=== PATIENT | female | born 1965 | race Caucasian/White ===

== ENCOUNTER → 2020-05-10 10:48 | Outpatient (BNVA) | payer OTHER, SELFPAY | PROVIDERS: Family Provider Internal Medicine; PCP Internal Medicine; Visit Provider Internal Medicine | DX: M47.816 Spondylosis without myelopathy or radiculopathy, lumbar region (principal) | CPT/HCPCS: 72100 ==

== ENCOUNTER → 2020-05-17 12:54 | Outpatient (BNVA) | payer OTHER, SELFPAY | PROVIDERS: Family Provider Internal Medicine; PCP Internal Medicine; Visit Provider Specialist | DX: M47.26 Other spondylosis with radiculopathy, lumbar region (principal); G62.9 Polyneuropathy, unspecified | CPT/HCPCS: 95909 ==

== ENCOUNTER 2020-05-19 16:42 | Outpatient (CLI) | payer OTHER, SELFPAY ==
--- NOTE | 2020-05-19 17:19 | MR_ITS ---
WS: [id number] EXAM: MR lumbar spine wo con* [id number] DATE OF EXAMINATION: 05/19/2020, 1731 hours COMPARISON: Lumbar spine plain films from 05/10/2020 HISTORY: 54 years old with low back pain with difficulty walking for years. TECHNIQUE: Sagittal T1, T2 and T2 inversion recovery: Axial proton density and T2 FINDINGS: Lower thoracic, lumbar vertebrae and upper sacral segments are of normal height and marrow signal ines racteristics. Cord ends distal L1 level. Distal cord is normal in appearance. T9-10, T10-11, T11-12 and T12-L1 disc levels show minimal degenerative changes without protrusion, ca nal or neural from stenosis L1-2: Normal L2-3: Normal L3-4: Slight desiccation of the disc. Posterior facet arthropathy with gapping in the facets. No prot rusion, canal or neural foraminal stenosis. Inflammatory changes in posterior facets at this level. L4-5: Narrowing of the disc space. Minimal anterolisthesis of L4 on 5. Disc is desiccated. Posterior facet arthropathy is seen. Extensive ligament of flavum thickening noted. Disc material and endplate spurring extending into the right neural foramen with minimal mass effect upon the exiting right L4 n erve sleeve with borderline neural foraminal stenosis. Central canal is narrowed borderline for steno sis. L5-S1: Disc is desiccated. Minimal endplate spurring. Slight facet arthropathy with gapping on the le ft. No protrusion, canal or neural foraminal stenosis No abnormal inflammatory changes are seen on inversion recovery sequencing other than slight edema in the posterior facets at L3-4 level bilaterally. Paraspinal musculature appears fairly normal in appearance. MR/MR lumbar spine wo con* [id number] IMPRESSION: Advanced degenerative spondylosis and facet changes L4-5 level with narrowing o f the disc space. Broad-based disc bulging and posterior facet arthropathy jean ges with ligamentum flavum thickening. There are findings of narrowing of the c anal. Borderline central canal and right neural foraminal stenosis. No other levels of degenerative change not nearly as advanced. See body of the report for further details.
== END 2020-05-19 16:43 | disposition home or self-care (01) ==
PROVIDERS: PCP Internal Medicine; Visit Provider Internal Medicine
DX: M47.26 Other spondylosis with radiculopathy, lumbar region (principal); R29.6 Repeated falls; M51.26 Other intervertebral disc displacement, lumbar region
CPT/HCPCS: 72148

== ENCOUNTER 2020-11-30 12:53 | Outpatient (CLI) | payer OTHER, SELFPAY ==
--- NOTE | 2020-11-30 13:00 | MM_ITS ---
WS: [id number] BILATERAL SCREENING DIGITAL MAMMOGRAM WITH CAD HISTORY: SCREENING COMPARISON: 11/22/2017 and 10/22/2016 Bilateral CC and MLO views submitted. Computer aided detection analyzed. Breast composition: There are scattered areas of fibroglandular density. No suspicious masses, microc alcifications or architectural distortion. Bilateral scattered asymmetries are similar to several clarissa or mammographic evaluation. No new or increasing nodules. MM/[place] [id number] IMPRESSION: BI-RADS: 2-Benign FOLLOW UP: 1 Year Follow-up
== END 2020-11-30 12:54 | disposition home or self-care (01) ==
LOC: RADSHAW 12:55
PROVIDERS: PCP Internal Medicine; Visit Provider Internal Medicine
DX: Z12.31 Encounter for screening mammogram for malignant neoplasm of breast (principal)
CPT/HCPCS: 77067

== ENCOUNTER 2021-01-03 12:00 | Outpatient (CLI) | payer OTHER, SELFPAY | END 2021-01-03 12:01 | disposition home or self-care (01) | LOC: SLEEP 01-04 11:12 | PROVIDERS: PCP Internal Medicine; Visit Provider Internal Medicine | DX: G47.10 Hypersomnia, unspecified (principal) | CPT/HCPCS: G0399 ==

== ENCOUNTER 2021-06-06 08:28 | Outpatient (CLI) | payer OTHER, SELFPAY ==
--- NOTE | 2021-06-06 08:34 | XR_ITS ---
WS: [id number] LUMBAR SPINE: 2 VIEWS TECHNIQUE: AP and lateral. HISTORY: ARTHRODESIS STATUS COMPARISON: 05/10/2020 Posterior lumbar fusion at L4-5 on the RIGHT. Pedicle screws and vertical rods are intact. No lucency around the screws. There is also an anterior cervical plate at L4-5 with interbody spacer. Disc spac e is maintained. No effusion at this time. No complications. The remaining disc spaces are normal. SI joints are symmetric bilaterally. No soft tissue abnormalities. XR/XR lumbar spine 2-3V* [id number] IMPRESSION: 1. Anterior and RIGHT unilateral posterior fusion at L4-5 is intact. 2. No evidence for loosening or fracture of the hardware. 3. No ankylosis at the disc space at this time.
== END 2021-06-06 08:29 | disposition home or self-care (01) ==
PROVIDERS: PCP Internal Medicine; Visit Provider Neurological Surgery
DX: Z98.1 Arthrodesis status (principal)
CPT/HCPCS: 72100

== ENCOUNTER 2021-08-01 09:10 | Outpatient (CLI) | payer OTHER, SELFPAY ==
--- NOTE | 2021-08-01 09:21 | XRR_ITS ---
PROCEDURE INFORMATION: Exam: XR Right Ankle Exam date and time: 08/01/2021 9:21 AM Age: 55 years old Clinical indication: Right ankle pain. TECHNIQUE: Imaging protocol: XR Right ankle. Views: 3 or more views. COMPARISON: No relevant prior studies available. FINDINGS: Bones/joints: The ankle mortise is symmetric. No osteochondral lesion is seen. No tibiotalar joint effusion. No calcaneal spur. The visualized Achilles tendon is grossly normal in morphology. No fracture, dislocation or subluxation. No periosteal reaction or supsicious bone lesion. Soft tissues: Mild soft tissue swelling along the anterior ankle and dorsal foot. XR/XR ankle RT min 3V* [id number] IMPRESSION: 1. Mild soft tissue swelling along the anterior ankle and dorsal foot. 2. No acute fracture is identified. 3. Consider MRI if clinically warranted. Radiation Dose CTDIVOL = (mGy): DLP = (mGy-cm)
== END 2021-08-01 09:11 | disposition home or self-care (01) ==
PROVIDERS: PCP Internal Medicine; Visit Provider Internal Medicine
DX: M25.571 Pain in right ankle and joints of right foot (principal); M79.89 Other specified soft tissue disorders
CPT/HCPCS: 73610

== ENCOUNTER → 2022-01-22 15:58 | Outpatient (BNVA) | payer OTHER, SELFPAY | PROVIDERS: PCP Internal Medicine; Referring Provider Internal Medicine; Visit Provider Podiatrist Foot & Ankle Surgery | DX: M25.571 Pain in right ankle and joints of right foot (principal) | CPT/HCPCS: 73610 ==

== ENCOUNTER 2022-04-19 07:49 | Outpatient (CLI) | payer OTHER, SELFPAY ==
--- NOTE | 2022-04-19 07:59 | MM_ITS ---
WS: [id number] SCREENING DIGITAL BREAST TOMOSYNTHESIS MAMMOGRAM WITH CAD HISTORY: SCREENING COMPARISON: 11/30/2020, 11/22/2017 and 10/22/2016 Bilateral CC and MLO with tomosynthesis views submitted. Synthetic mammography reviewed. Computer aid ed detection analyzed. Breast composition: There are scattered areas of fibroglandular density. No suspicious masses, microc alcifications or architectural distortion. Scattered asymmetries and calcifications are stable. MM/[place] [id number] IMPRESSION: BI-RADS: 2-Benign FOLLOW UP: 1 Year Follow-up
== END 2022-04-19 07:50 | disposition home or self-care (01) ==
PROVIDERS: PCP Internal Medicine; Visit Provider Internal Medicine
DX: Z12.31 Encounter for screening mammogram for malignant neoplasm of breast (principal)
CPT/HCPCS: 77063; 77067

== ENCOUNTER 2023-06-11 08:08 | Outpatient (CLI) | payer OTHER, SELFPAY ==
--- NOTE | 2023-06-11 08:40 | US_ITS ---
WS: [id number] THYROID ULTRASOUND HISTORY: HYPOTHYROIDISM COMPARISON: None available. Right lobe: 0.7 cm x 0.7 cm x 2.4 cm (w x ap x l). Volume: 0.5 cm3. Small atrophied mildly heterogeneous gland. No thyroid mass or increased vascularity. No nodules. Left lobe: 0.9 cm x 0.8 cm x 1.9 cm (w x ap x l). Volume: 0.7 cm3. Small atrophied, mildly heterogeneous gland. No mass or increased vascularity. No nodules. Isthmus: 0.2 cm. IMPRESSION: Atrophied thyroid gland. No mass.
--- NOTE | 2023-06-11 09:51 | MM_ITS ---
WS: [id number] VIEWS: MLO and CC views both breasts. 3D digital tomosynthesis is also included in this exam. Comparison made with prior exam of 08/11/2012, 09/28/2014, 10/22/2016, 11/22/2017, 11/30/2020, 04/19/2022. . Findings: There was no sign of mass, architectural distortion or suspicious calcification in either breast. Sta ble appearing nodular densities in both breasts. There are scattered areas of fibroglandular density Impression: MM/[place] [id number] BI-RADS: 2-Benign finding. FOLLOW-UP: 1 Year Follow-up This mammogram was also analyzed by the Computer Aided Detection System R2 Imag e Mold Setter.
== END 2023-06-11 08:09 | disposition home or self-care (01) ==
LOC: RAD 08:14 → MOBLMAM 09:50
PROVIDERS: PCP Internal Medicine; Visit Provider Internal Medicine
DX: E03.9 Hypothyroidism, unspecified (principal); E03.4 Atrophy of thyroid (acquired); Z12.31 Encounter for screening mammogram for malignant neoplasm of breast
CPT/HCPCS: 76536; 77063; 77067

== ENCOUNTER 2024-03-25 14:00 | Oncology outpatient (recurring) (ONCR) | payer OTHER, SELFPAY ==
[2024-03-18 14:59] VITALS: BP 128/72; PULSE 96; RESP 16; TEMP 36.5; O2SAT 96
[2024-03-18] MEDS: sodium chloride 0.9% 250 ML 35 ML IV (15:18)
[2024-03-18] MEDS: ferric carboxy (IVPB) 750 MG in sodium chloride 0.9% (100 ml) 100 ML 345 MG IV (15:20)
[2024-03-18 15:56] VITALS: BP 116/70; PULSE 93; RESP 16; TEMP 36.5; O2SAT 99
--- OUTSIDE RECORDS SUMMARY | 2024-03-25 13:50 | XMS_ITS | Continuity of Care Document ---
Author Name Unknown Organization [facility] Address [address] [place] [address]- Care Team Providers Care Data Conversion Operator Name Role Phone Dori Pa MD Primary Care Physician Encounter [employer] Number [id number] Date(s): 11/30/22 - 12/06/23 [facility] [address] [address] Attending Physician: Socorro Eden Allergies, Adverse Reactions, Alerts Substance Reaction Severity Status sulfa drugs unknown Unknown Active penicillin unknown Unknown Active albumin human Code Blue Severe Active morphine unknown Unknown Active Medications acetaminophen 325 mg oral tablet 975 mg, By mouth, QID, # 84 tab, Refill(s) 0, TAB Start Date: 03/14/21 Status: Ordered Colace 100 mg oral capsule 100 mg = 1 cap, By mouth, BID, PRN for constipation, # 28 cap, Refill(s) 0 Start Date: 03/14/21 Stop Date: 03/28/21 Status: Ordered DULoxetine 60 mg oral delayed release capsule 60 mg = 1 cap, By mouth, Daily, Refill(s) 0 Start Date: 01/04/21 Status: Ordered fexofenadine 180 mg oral tablet 180 mg = 1 tab, By mouth, Daily, # 30 tab, Refill(s) 0 Start Date: 07/20/20 Status: Ordered liothyronine 5 mcg oral tablet 5 mcg = 1 tab, By mouth, Daily, Refill(s) 0 Start Date: 01/04/21 Status: Ordered metronidazole topical 0.75% cream 1 fozia, TOP, BID, to face, # 45 g, Refill(s) 6, Route to Pharmacy Electronically, [facility]acy: [facility], [id number], 1 application Topical BID,Instr:to face, 109.82, 07/10/2114:22:00 CDT, kg, Weight Start Date: 07/10/21 Status: Ordered Protonix 40 mg, By mouth, Daily, 0, 04/12/21 10:43:00 CDT, Substitution Permitted Start Date: 04/12/21 Status: Ordered Synthroid 100 mcg (0.1 mg) oral tablet 100 mcg = 1 tab, By mouth, Daily, Refill(s) 0 Start Date: 07/20/20 Status: Ordered Vitamin D3 50,000 intl units (1250 mcg) oral capsule 50,000 IntUnit, By mouth, QW (once a week), # 4 cap, Refill(s) 5, Pharmacy: [facility], [id number], CAP, 50,000 IntUnit By mouth QW (once a week), 65.5, 02/01/21 10:46:00 CDT, in, 106.36, 02/01/21 10:46:00 CDT, kg, Weight Start Date: 02/01/21 Status: Ordered Problem List Condition Confirmation Course Effective Dates Status H ealth Status Informant Osteoarthritis of carpometacarpal (CMC) joint of both thumbs Confirmed Active Intolerance of continuous positive airway pressure (CPAP) ventilation Confirmed Active Hypothyroidism Confirmed Active Lumbar radiculopathy, chronic Confirmed Active Sleep apnea, obstructive Confirmed Active Rheumatoid arthritis Confirmed Active Seropositive rheumatoid arthritis of multiple joints Confirmed Active Procedures Procedure Date Related Diagnosis Body Site Status L4-5 ALIF 03/14/21 Completed Shoulder surgery left 2013 Com pleted radioactive iodine for graves disease 1997 Completed right breast lipomas removed 1997 Completed Hysterectomy 1 1995 Completed 1partial Social History Social History Type Response Smoking Status Never smoker; Smokel ess tobacco use: Never; Has the patient smoked in the last 365 days, even once? No; 2nd hand smoke exposure. No entered on: 04/30/22 Sex Female Implantable Device List Procedure Provider Procedure Date Device Type Site Unknown Unknown 03/14/21 Unknown Unknown Device Identifier Serial Number Lot or Batch Number Manufacturing Date Expiration Date Distinct Identification Code MRI Safety Implantable Status Assigning Authority [id number] Unknown [id number] Unknown 08/29/23 Unknown MR Safe Active GS1 [id number] Unknown [id number] AAT Unknown 02/27/22 Unknown Unknown Active GS1 [id number] Unknown 38AH Unknown 04/06/23 Unknown Unknown Active GS1 Unknown Unknown Unknown Unknown Unknown Unknown Unknown Active Unk nown Unknown Unknown Unknown Unknown Unknown Unknown Unknown Active Unk nown Unknown Unknown Unknown Unknown Unknown Unknown Unknown Active Unk nown Unknown Unknown Unknown Unknown Unknown Unknown Unknown Active Unk nown Unknown Unknown Unknown Unknown Unknown Unknown Unknown Active Unk nown Patient Care team information Care Team Personnel Name: Dori Pa MD Position: 2 Restricted Providers Member Role: Primary Care Physician Address: Address: [address] [place] [address] [place] [address]- Care Team Related Persons Name: RONI ENG Name: AIDA SANCHEZ
[2024-03-25 14:20] VITALS: BP 118/78; PULSE 105; RESP 16; TEMP 36.6; O2SAT 97
[2024-03-25] MEDS: sodium chloride 0.9% 250 ML 345 ML IV (14:43)
[2024-03-25] MEDS: ferric carboxy (PYXIS) 750 MG in sodium chloride 0.9% (100 ml) 100 ML 345 MG IV (14:44)
== END 2024-03-29 23:59 | disposition home or self-care (01) ==
PROVIDERS: PCP Internal Medicine; Visit Provider Internal Medicine Medical Oncology
DX: Z53.9 Procedure and treatment not carried out, unspecified reason (principal); D64.9 Anemia, unspecified
CPT/HCPCS: 96365; J1439; J7050

== ENCOUNTER 2024-07-29 13:29 | Outpatient (CLI) | payer OTHER, SELFPAY ==
--- NOTE | 2024-07-29 13:33 | XRR_ITS ---
PROCEDURE INFORMATION: Exam: XR Left Knee Exam date and time: 07/29/2024 1:42 PM Age: 58 years old Clinical indication: Pain and injury or trauma; Blunt trauma; Left; Injury details: Fall today, landed hard on knee most of pain in upper leg; Additional info: L knee pain TECHNIQUE: Imaging protocol: Radiologic exam of the left knee. Views: 1 or 2 views. COMPARISON: CR XR femur LT min 2V* [id number] 07/29/2024 1:42 PM FINDINGS: Bones/joints: Normal. Soft tissues: Prominent soft tissue swelling is noted anteriorly overlying the proximal tibia. XR/XR knee LT 1-2V [id number] IMPRESSION: Soft tissue swelling without fracture
--- NOTE | 2024-07-29 13:33 | XRR_ITS ---
PROCEDURE INFORMATION: Exam: XR Left Femur Exam date and time: 07/29/2024 1:42 PM Age: 58 years old Clinical indication: Injury or trauma; Blunt trauma; Thigh or upper leg; Left; Patient HX: Fall today, landed hard on knee most of pain in upper leg; Additional info: L hip pain TECHNIQUE: Imaging protocol: Radiologic exam of the left femur. Views: 2 views. COMPARISON: CR XR knee LT 1-2V [id number] 07/29/2024 1:42 PM FINDINGS: Bones/joints: Unremarkable. No acute fracture. Soft tissues: Unremarkable. XR/XR femur LT min 2V* [id number] IMPRESSION: No acute findings.
== END 2024-07-29 13:30 | disposition home or self-care (01) ==
PROVIDERS: PCP Internal Medicine; Visit Provider Nurse Practitioner Family
DX: M25.462 Effusion, left knee (principal); W19.XXXA Unspecified fall, initial encounter; M25.562 Pain in left knee
CPT/HCPCS: 73552; 73560